=== PATIENT | male | born 1975 | race Caucasian/White ===

== ENCOUNTER 2019-03-26 01:28 | Outpatient (CLI) | payer BC, SELFPAY ==
--- NOTE | 2019-03-26 08:12 | DI.RAD_ITS ---
SYMPTOM/DIAGNOSIS: ABDOMINAL PJAIN, CYSTIC FIBROSIS R10.9 UNSPECIFIED ABDOMINAL PAIN ABDOMEN: 03/26 Two views were obtained. There is a large quantity of fecal material throughout the colon consistent with constipation. No evidence of bowel obstruction. Vascular clips noted in right upper quadrant consistent with prior cholecystectomy. No free intraperitoneal air is seen. No organomegaly seen. CONCLUSION: Findings consistent with constipation.
--- NOTE | 2019-03-26 08:12 | DI.US_ITS ---
SYMPTOM/DIAGNOSIS: ABDOMINAL PAIN, R10.9, UNSPECIFIED ABDOMINAL PAIN. ABDOMINAL ULTRASOUND: 03/26 The visualized liver parenchyma is normal in appearance. Gallbladder has been surgically removed. Common duct is dilated at about 12 mm, although this is within the accepted range for post cholecystectomy, there is a question of tapering of the common duct in the incompletely seen head of the pancreas. The possibility of extrinsic obstruction or intrinsic obstruction not excluded. Correlation with MRCP/Pancreatic MRI may be considered if clinically appropriate. Note is also made of right hydronephrosis which is moderate to severe. No localized site of obstruction identified and most of the ureter is nonvisualized. No left hydronephrosis or renal calcification. CONCLUSION: 1. Right hydronephrosis, moderate to severe, etiology uncertain. 2. Question common duct dilatation of the biliary tract, question extrinsic or intrinsic obstruction of the CBD at the pancreatic head. Correlation with MRCP/pancreatic MRI may be considered if clinically appropriate.
[2019-03-26 16:40] LABS: Abs Immature Grans 0.01 k/cumm (0.0-0.09); Absolute Basophil Count 0.03 k/cumm (0.0-0.2); Absolute Eosinophil Count 0.09 k/cumm (0.0-0.7); Absolute Lymphocyte Count 1.24 k/cumm (1.2-3.4); Absolute Neutrophil Count 6.67 k/cumm (1.2-6.7); Basophils % 0.4; Eosinophils % 1.1; HCT 41.1 % (40.0-50.0); HGB 13.8 g/dL (13.5-17.5); Immature Grans % 0.1; Lymphocytes % 14.5; Mean Corp. HGB Concentration 33.6 g/dL (32.0-36.0); Mean Corpuscular Hemoglobin 29.1 pg (27.0-33.0); Mean Corpuscular Volume 86.7 fL (80-95); Mean Platelet Volume 10.1 fL (8.0-11.0); Monocytes % 5.9; Platelet Count 382 x1000/uL (130-400); RBC 4.74 m/cumm (4.50-6.00); RBC Distribution Width 12.8 % (11.8-14.1); White Blood Cell Count 8.54 k/cumm (4.4-10.8)
[2019-03-26 19:26] LABS: ALT 106 U/L (12-78); AST 69 U/L (15-37); Albumin 3.2 g/dL (3.4-5.0); Alkaline Phosphatase 122 U/L (46-116); Anion Gap 9.1 mmol/L (3-11); BUN 14 mg/dL (7-18); Bilirubin, Total 0.3 mg/dL (0.2-1.0); CO2 28.9 mmol/L (21.0-32.0); CREATININE 1.09 mg/dL (0.70-1.30); Calcium 8.5 mg/dL (8.5-10.1); Chloride 101 mmol/L (98-107); Glucose 117 mg/dL (70-100); Lipase 19 U/L (73-393); Potassium 4.2 mmol/L (3.5-5.1); Sodium 139 mmol/L (136-145); Total Protein 7.2 g/dL (6.4-8.2)
[2019-03-26 19:55] LABS: Amylase 6 U/L (25-115)
== END 2019-03-26 01:48 ==
PROVIDERS: PCP Family Medicine; Visit Provider Family Medicine
DX: R10.9 Unspecified abdominal pain (principal); K59.00 Constipation, unspecified; N13.30 Unspecified hydronephrosis; K83.8 Other specified diseases of biliary tract; Z90.49 Acquired absence of other specified parts of digestive tract
CPT/HCPCS: 36415; 80053; 83690; 74018; 76700; 82150; 85025

== ENCOUNTER 2019-05-11 16:13 | Outpatient (REF) | payer BC, SELFPAY | END 2019-05-11 16:33 | LOC: LBN 16:13 | PROVIDERS: PCP Family Medicine; Visit Provider Family Medicine | DX: E43 Unspecified severe protein-calorie malnutrition (principal); K86.81 Exocrine pancreatic insufficiency | CPT/HCPCS: 80053; 83735; 84100; 84134; 84478; 85025 ==

== ENCOUNTER 2019-05-12 15:23 | Outpatient (REF) | payer BC, SELFPAY ==
[2019-05-12 16:38] LABS: Abs Immature Grans 0.02 k/cumm (0.0-0.09); Absolute Basophil Count 0.03 k/cumm (0.0-0.2); Absolute Eosinophil Count 0.03 k/cumm (0.0-0.7); Absolute Lymphocyte Count 1.12 k/cumm (1.2-3.4); Absolute Monocyte Count 0.51 k/cumm (0.11-0.7); Basophils % 0.3; Eosinophils % 0.3; HCT 36.2 % (40.0-50.0); Immature Grans % 0.2; Lymphocytes % 11.1; Mean Corp. HGB Concentration 33.1 g/dL (32.0-36.0); Mean Corpuscular Hemoglobin 28.3 pg (27.0-33.0); Mean Corpuscular Volume 85.4 fL (80-95); Mean Platelet Volume 11.6 fL (8.0-11.0); Neutrophils % 83.1; Platelet Count 421 x1000/uL (130-400); RBC 4.24 m/cumm (4.50-6.00); RBC Distribution Width 14.5 % (11.8-14.1); White Blood Cell Count 10.11 k/cumm (4.4-10.8)
[2019-05-12 16:47] LABS: ALT 269 U/L (12-78); AST 214 U/L (15-37); Albumin 2.7 g/dL (3.4-5.0); Alkaline Phosphatase 189 U/L (46-116); Anion Gap 11.5 mmol/L (3-11); BUN 29 mg/dL (7-18); CO2 29.5 mmol/L (21.0-32.0); CREATININE 0.89 mg/dL (0.70-1.30); Calcium 8.8 mg/dL (8.5-10.1); Chloride 103 mmol/L (98-107); Glucose 85 mg/dL (70-100); Potassium 4.2 mmol/L (3.5-5.1); Sodium 144 mmol/L (136-145); Total Protein 7.5 g/dL (6.4-8.2); Triglyceride 45 mg/dL (30-150)
[2019-05-12 17:43] LABS: PHOSPHORUS 4.2 mg/dL (2.6-4.7)
[2019-05-14 09:11] LABS: Prealbumin 21 mg/dL (20-40)
== END 2019-05-12 15:43 ==
LOC: LBN 15:23
PROVIDERS: PCP Family Medicine; Visit Provider Internal Medicine Pulmonary Disease
DX: K31.5 Obstruction of duodenum (principal); C17.0 Malignant neoplasm of duodenum; E43 Unspecified severe protein-calorie malnutrition
CPT/HCPCS: 80053; 84100; 84134; 84478; 85025

== ENCOUNTER 2019-05-18 12:19 | Outpatient (REF) | payer BC, SELFPAY ==
[2019-05-18 13:21] LABS: Abs Immature Grans 0.02 k/cumm (0.0-0.09); Absolute Basophil Count 0.03 k/cumm (0.0-0.2); Absolute Lymphocyte Count 0.97 k/cumm (1.2-3.4); Absolute Monocyte Count 0.73 k/cumm (0.11-0.7); Absolute Neutrophil Count 7.18 k/cumm (1.2-6.7); Basophils % 0.3; Eosinophils % 2.2; HCT 33.2 % (40.0-50.0); Immature Grans % 0.2; Lymphocytes % 10.6; Mean Corp. HGB Concentration 33.1 g/dL (32.0-36.0); Mean Corpuscular Hemoglobin 28.8 pg (27.0-33.0); Mean Corpuscular Volume 86.9 fL (80-95); Mean Platelet Volume 12.9 fL (8.0-11.0); Neutrophils % 78.7; Platelet Count 382 x1000/uL (130-400); RBC 3.82 m/cumm (4.50-6.00); RBC Distribution Width 15.3 % (11.8-14.1); White Blood Cell Count 9.13 k/cumm (4.4-10.8)
[2019-05-18 13:50] LABS: ALT 168 U/L (12-78); AST 64 U/L (15-37); Albumin 2.4 g/dL (3.4-5.0); Alkaline Phosphatase 315 U/L (46-116); Anion Gap 9.7 mmol/L (3-11); BUN 24 mg/dL (7-18); Bilirubin, Total 3.7 mg/dL (0.2-1.0); CO2 29.3 mmol/L (21.0-32.0); CREATININE 0.72 mg/dL (0.70-1.30); Calcium 8.3 mg/dL (8.5-10.1); Chloride 102 mmol/L (98-107); Glucose 108 mg/dL (70-100); Sodium 141 mmol/L (136-145); Triglyceride 38 mg/dL (30-150)
[2019-05-19 12:57] LABS: Prealbumin 10 mg/dL (20-40)
[2019-05-19 13:08] LABS: Magnesium 1.9 mg/dL (1.8-2.4)
== END 2019-05-18 12:39 ==
LOC: LBN 12:19
PROVIDERS: PCP Family Medicine; Visit Provider Family Medicine
DX: C17.0 Malignant neoplasm of duodenum (principal); E43 Unspecified severe protein-calorie malnutrition
CPT/HCPCS: 80053; 83735; 84100; 84134; 84478; 85025

== ENCOUNTER 2019-05-28 14:51 | Outpatient (RCR) | payer BC, SELFPAY ==
[2019-05-24] MEDS: Normal Saline Flush 10 ML SYR IVP (12:12)
[2019-05-24] MEDS: Heparin 500 UNITS/5 ML SYRINGE IV (12:28)
[2019-05-24 12:32] LABS: Abs Immature Grans 0.03 k/cumm (0.0-0.09); Absolute Basophil Count 0.03 k/cumm (0.0-0.2); Absolute Eosinophil Count 0.12 k/cumm (0.0-0.7); Absolute Lymphocyte Count 1.14 k/cumm (1.2-3.4); Absolute Monocyte Count 0.92 k/cumm (0.11-0.7); Basophils % 0.3; Eosinophils % 1.1; HCT 31.1 % (40.0-50.0); HGB 10.4 g/dL (13.5-17.5); Immature Grans % 0.3; Lymphocytes % 10.3; Mean Corp. HGB Concentration 33.4 g/dL (32.0-36.0); Mean Corpuscular Hemoglobin 28.3 pg (27.0-33.0); Mean Corpuscular Volume 84.7 fL (80-95); Mean Platelet Volume 11.9 fL (8.0-11.0); Monocytes % 8.3; Neutrophils % 79.7; Platelet Count 408 x1000/uL (130-400); RBC 3.67 m/cumm (4.50-6.00); RBC Distribution Width 14.9 % (11.8-14.1); White Blood Cell Count 11.04 k/cumm (4.4-10.8)
[2019-05-24 12:54] LABS: ALT 87 U/L (16-63); AST 43 U/L (15-37); Albumin 2.1 g/dL (3.4-5.0); Alkaline Phosphatase 363 U/L (46-116); BUN 19 mg/dL (7-18); CREATININE 0.83 mg/dL (0.70-1.30); Calcium 8.3 mg/dL (8.5-10.1); Chloride 101 mmol/L (98-107); Glucose 109 mg/dL (70-100); Potassium 3.7 mmol/L (3.5-5.1); Sodium 139 mmol/L (136-145); Total Protein 7.2 g/dL (6.4-8.2)
[2019-05-25 11:07] LABS: CEA 9.9 ng/ml
[2019-05-28] MEDS: Normal Saline Flush 10 ML SYR IVP (14:50)
[2019-05-28 15:03] LABS: Abs Immature Grans 0.02 k/cumm (0.0-0.09); Absolute Basophil Count 0.01 k/cumm (0.0-0.2); Absolute Eosinophil Count 0.11 k/cumm (0.0-0.7); Absolute Lymphocyte Count 1.05 k/cumm (1.2-3.4); Absolute Monocyte Count 0.61 k/cumm (0.11-0.7); Absolute Neutrophil Count 6.82 k/cumm (1.2-6.7); Basophils % 0.1; Eosinophils % 1.3; HCT 32.5 % (40.0-50.0); HGB 10.8 g/dL (13.5-17.5); Immature Grans % 0.2; Lymphocytes % 12.2; Mean Corp. HGB Concentration 33.2 g/dL (32.0-36.0); Mean Corpuscular Hemoglobin 28.2 pg (27.0-33.0); Mean Corpuscular Volume 84.9 fL (80-95); Mean Platelet Volume 11.5 fL (8.0-11.0); Monocytes % 7.1; Neutrophils % 79.1; Platelet Count 471 x1000/uL (130-400); RBC 3.83 m/cumm (4.50-6.00); RBC Distribution Width 14.8 % (11.8-14.1); White Blood Cell Count 8.62 k/cumm (4.4-10.8)
[2019-05-28 15:24] LABS: ALT 74 U/L (16-63); AST 50 U/L (15-37); Albumin 2.2 g/dL (3.4-5.0); Alkaline Phosphatase 360 U/L (46-116); Anion Gap 8.9 mmol/L (3-11); BUN 17 mg/dL (7-18); Bilirubin, Total 4.2 mg/dL (0.2-1.0); CO2 31.1 mmol/L (21.0-32.0); CREATININE 0.79 mg/dL (0.70-1.30); Calcium 8.6 mg/dL (8.5-10.1); Chloride 102 mmol/L (98-107); Glucose 104 mg/dL (70-100); Potassium 3.5 mmol/L (3.5-5.1); Sodium 142 mmol/L (136-145); Total Protein 7.8 g/dL (6.4-8.2)
[2019-05-31 10:56] LABS: CEA 10.1 ng/ml
== END 2019-05-29 23:59 | disposition home or self-care (01) ==
LOC: INF 14:51
PROVIDERS: PCP Family Medicine; Visit Provider Internal Medicine Hematology & Oncology
DX: C17.0 Malignant neoplasm of duodenum (principal); Z45.2 Encounter for adjustment and management of vascular access device
CPT/HCPCS: 36591; 36592; 80053; 82378; 85025

== ENCOUNTER 2019-05-28 14:58 | Outpatient (RCR) | payer BC, SELFPAY | END 2019-05-29 23:59 | disposition home or self-care (01) | LOC: INF 14:58 | PROVIDERS: PCP Family Medicine; Visit Provider Internal Medicine Hematology & Oncology | DX: R69 Illness, unspecified (principal) ==

== ENCOUNTER 2019-06-01 15:29 | Outpatient (REF) | payer BC, SELFPAY ==
[2019-06-01 16:16] LABS: Abs Immature Grans 0.02 k/cumm (0.0-0.09); Absolute Basophil Count 0.01 k/cumm (0.0-0.2); Absolute Eosinophil Count 0.17 k/cumm (0.0-0.7); Absolute Lymphocyte Count 1.17 k/cumm (1.2-3.4); Absolute Monocyte Count 0.81 k/cumm (0.11-0.7); Absolute Neutrophil Count 8.27 k/cumm (1.2-6.7); Basophils % 0.1; Eosinophils % 1.6; HCT 30.9 % (40.0-50.0); HGB 10.1 g/dL (13.5-17.5); Immature Grans % 0.2; Lymphocytes % 11.2; Mean Corp. HGB Concentration 32.7 g/dL (32.0-36.0); Mean Corpuscular Hemoglobin 28.4 pg (27.0-33.0); Mean Corpuscular Volume 86.8 fL (80-95); Mean Platelet Volume 12.6 fL (8.0-11.0); Monocytes % 7.8; Neutrophils % 79.1; Platelet Count 516 x1000/uL (130-400); RBC 3.56 m/cumm (4.50-6.00); RBC Distribution Width 15.1 % (11.8-14.1); White Blood Cell Count 10.45 k/cumm (4.4-10.8)
[2019-06-01 16:24] LABS: ALT 61 U/L (16-63); AST 45 U/L (15-37); Alkaline Phosphatase 276 U/L (46-116); Anion Gap 9.2 mmol/L (3-11); BUN 21 mg/dL (7-18); Bilirubin, Total 3.6 mg/dL (0.2-1.0); CO2 27.8 mmol/L (21.0-32.0); CREATININE 0.73 mg/dL (0.70-1.30); Calcium 8.1 mg/dL (8.5-10.1); Chloride 100 mmol/L (98-107); Glucose 102 mg/dL (70-100); Potassium 4.5 mmol/L (3.5-5.1); Sodium 137 mmol/L (136-145); Total Protein 6.8 g/dL (6.4-8.2); Triglyceride 49 mg/dL (30-150)
[2019-06-01 16:35] LABS: PHOSPHORUS 4.2 mg/dL (2.6-4.7)
[2019-06-02 13:27] LABS: Magnesium 1.8 mg/dL (1.8-2.4)
[2019-06-03 10:04] LABS: Prealbumin 9 mg/dL (20-40)
== END 2019-06-01 15:49 ==
LOC: LBN 15:29
PROVIDERS: Nurse Practitioner Acute Care; PCP Family Medicine; Visit Provider Family Medicine
DX: K31.5 Obstruction of duodenum (principal); C17.0 Malignant neoplasm of duodenum; E43 Unspecified severe protein-calorie malnutrition; R63.4 Abnormal weight loss
CPT/HCPCS: 80053; 83735; 84100; 84134; 84478; 85025

== ENCOUNTER 2019-06-08 15:09 | Outpatient (REF) | payer BC, SELFPAY ==
[2019-06-08 15:45] LABS: Abs Immature Grans 0.01 k/cumm (0.0-0.09); Absolute Basophil Count 0.01 k/cumm (0.0-0.2); Absolute Eosinophil Count 0.04 k/cumm (0.0-0.7); Absolute Lymphocyte Count 1.25 k/cumm (1.2-3.4); Absolute Monocyte Count 0.47 k/cumm (0.11-0.7); Basophils % 0.1; Eosinophils % 0.5; HCT 30.4 % (40.0-50.0); HGB 9.9 g/dL (13.5-17.5); Immature Grans % 0.1; Lymphocytes % 14.2; Mean Corp. HGB Concentration 32.6 g/dL (32.0-36.0); Mean Corpuscular Hemoglobin 28.1 pg (27.0-33.0); Mean Corpuscular Volume 86.4 fL (80-95); Mean Platelet Volume 12.4 fL (8.0-11.0); Monocytes % 5.4; Neutrophils % 79.7; Platelet Count 529 x1000/uL (130-400); RBC 3.52 m/cumm (4.50-6.00); RBC Distribution Width 14.6 % (11.8-14.1); White Blood Cell Count 8.78 k/cumm (4.4-10.8)
[2019-06-08 17:49] LABS: ALT 81 U/L (16-63); AST 55 U/L (15-37); Alkaline Phosphatase 323 U/L (46-116); Anion Gap 7.7 mmol/L (3-11); BUN 25 mg/dL (7-18); Bilirubin, Total 3.1 mg/dL (0.2-1.0); CO2 28.3 mmol/L (21.0-32.0); CREATININE 0.78 mg/dL (0.70-1.30); Calcium 8.3 mg/dL (8.5-10.1); Chloride 101 mmol/L (98-107); Glucose 94 mg/dL (70-100); Magnesium 1.7 mg/dL (1.8-2.4); Potassium 4.7 mmol/L (3.5-5.1); Sodium 137 mmol/L (136-145); Total Protein 7.1 g/dL (6.4-8.2); Triglyceride 40 mg/dL (30-150)
[2019-06-08 18:24] LABS: PHOSPHORUS 4.5 mg/dL (2.6-4.7)
== END 2019-06-08 15:29 ==
LOC: LBN 15:09
PROVIDERS: PCP Family Medicine; Visit Provider Family Medicine
DX: K31.5 Obstruction of duodenum (principal); C17.0 Malignant neoplasm of duodenum; E84.8 Cystic fibrosis with other manifestations; E11.9 Type 2 diabetes mellitus without complications
CPT/HCPCS: 80053; 83735; 84100; 84255; 84478; 85025

== ENCOUNTER 2019-06-16 16:39 | Outpatient (REF) | payer BC, SELFPAY ==
[2019-06-16 23:29] LABS: ALT 74 U/L (16-63); AST 56 U/L (15-37); Abs Immature Grans 0.02 k/cumm (0.0-0.09); Absolute Basophil Count 0.01 k/cumm (0.0-0.2); Absolute Eosinophil Count 0.18 k/cumm (0.0-0.7); Absolute Lymphocyte Count 1.09 k/cumm (1.2-3.4); Absolute Monocyte Count 0.84 k/cumm (0.11-0.7); Absolute Neutrophil Count 5.37 k/cumm (1.2-6.7); Alkaline Phosphatase 286 U/L (46-116); BUN 22 mg/dL (7-18); Basophils % 0.1; Bilirubin, Total 3.2 mg/dL (0.2-1.0); CREATININE 0.71 mg/dL (0.70-1.30); Calcium 8.4 mg/dL (8.5-10.1); Chloride 101 mmol/L (98-107); Eosinophils % 2.4; Glucose 89 mg/dL (70-100); HCT 30.5 % (40.0-50.0); HGB 9.7 g/dL (13.5-17.5); Immature Grans % 0.3; Lymphocytes % 14.5; Magnesium 1.8 mg/dL (1.8-2.4); Mean Corp. HGB Concentration 31.8 g/dL (32.0-36.0); Mean Corpuscular Hemoglobin 28.3 pg (27.0-33.0); Mean Corpuscular Volume 88.9 fL (80-95); Mean Platelet Volume 12.1 fL (8.0-11.0); Monocytes % 11.2; Neutrophils % 71.5; Platelet Count 441 x1000/uL (130-400); Potassium 4.6 mmol/L (3.5-5.1); RBC 3.43 m/cumm (4.50-6.00); RBC Distribution Width 15.6 % (11.8-14.1); Sodium 139 mmol/L (136-145); Triglyceride 33 mg/dL (30-150); White Blood Cell Count 7.51 k/cumm (4.4-10.8)
[2019-06-16 23:41] LABS: Anisocytosis 1+; Hypochromasia 1+; PHOSPHORUS 4.2 mg/dL (2.6-4.7); Polychromasia Present
[2019-06-17 22:04] LABS: Selenium, Serum 77 ng/mL (70-150)
== END 2019-06-16 16:59 ==
LOC: LBN 16:39
PROVIDERS: PCP Family Medicine; Visit Provider Family Medicine
DX: K31.5 Obstruction of duodenum (principal); C17.0 Malignant neoplasm of duodenum; E43 Unspecified severe protein-calorie malnutrition; K86.81 Exocrine pancreatic insufficiency
CPT/HCPCS: 80053; 83735; 84100; 84134; 84255; 84478; 85025

== ENCOUNTER 2019-06-23 13:50 | Outpatient (RCR) | payer BC, SELFPAY ==
[2019-06-02] MEDS: Normal Saline Flush 10 ML SYR IVP (07:35)
[2019-06-02 07:40] LABS: Abs Immature Grans 0.02 k/cumm (0.0-0.09); Absolute Basophil Count 0.01 k/cumm (0.0-0.2); Absolute Lymphocyte Count 1.47 k/cumm (1.2-3.4); Absolute Monocyte Count 0.89 k/cumm (0.11-0.7); Basophils % 0.1; Eosinophils % 0.8; HCT 31.5 % (40.0-50.0); HGB 10.5 g/dL (13.5-17.5); Immature Grans % 0.2; Lymphocytes % 12.3; Mean Corp. HGB Concentration 33.3 g/dL (32.0-36.0); Mean Corpuscular Hemoglobin 28.5 pg (27.0-33.0); Mean Corpuscular Volume 85.6 fL (80-95); Mean Platelet Volume 11.3 fL (8.0-11.0); Monocytes % 7.4; Neutrophils % 79.2; Platelet Count 558 x1000/uL (130-400); RBC 3.68 m/cumm (4.50-6.00); RBC Distribution Width 14.9 % (11.8-14.1); White Blood Cell Count 11.96 k/cumm (4.4-10.8)
[2019-06-02 07:41] LABS: Absolute Neutrophil Count 9.47 k/cumm (1.2-6.7)
[2019-06-02 07:54] LABS: ALT 60 U/L (16-63); AST 44 U/L (15-37); Albumin 2.1 g/dL (3.4-5.0); Alkaline Phosphatase 284 U/L (46-116); Anion Gap 6.3 mmol/L (3-11); BUN 18 mg/dL (7-18); Bilirubin, Total 4.1 mg/dL (0.2-1.0); CO2 30.7 mmol/L (21.0-32.0); CREATININE 0.79 mg/dL (0.70-1.30); Calcium 8.3 mg/dL (8.5-10.1); Chloride 99 mmol/L (98-107); Glucose 134 mg/dL (70-100); Potassium 3.9 mmol/L (3.5-5.1); Sodium 136 mmol/L (136-145); Total Protein 7.7 g/dL (6.4-8.2)
[2019-06-15] MEDS: Normal Saline Flush 10 ML SYR IVP (11:25)
[2019-06-15 11:29] LABS: Abs Immature Grans 0.02 k/cumm (0.0-0.09); Absolute Basophil Count 0.02 k/cumm (0.0-0.2); Absolute Eosinophil Count 0.11 k/cumm (0.0-0.7); Absolute Lymphocyte Count 1.28 k/cumm (1.2-3.4); Absolute Monocyte Count 0.96 k/cumm (0.11-0.7); Absolute Neutrophil Count 6.73 k/cumm (1.2-6.7); Basophils % 0.2; Eosinophils % 1.2; HCT 30.5 % (40.0-50.0); HGB 10.1 g/dL (13.5-17.5); Immature Grans % 0.2; Mean Corp. HGB Concentration 33.1 g/dL (32.0-36.0); Mean Corpuscular Hemoglobin 28.6 pg (27.0-33.0); Mean Corpuscular Volume 86.4 fL (80-95); Mean Platelet Volume 11.1 fL (8.0-11.0); Monocytes % 10.5; Neutrophils % 73.9; Platelet Count 502 x1000/uL (130-400); RBC 3.53 m/cumm (4.50-6.00); RBC Distribution Width 14.9 % (11.8-14.1); White Blood Cell Count 9.12 k/cumm (4.4-10.8)
[2019-06-15 11:39] LABS: ALT 67 U/L (16-63); AST 50 U/L (15-37); Alkaline Phosphatase 295 U/L (46-116); Anion Gap 7.4 mmol/L (3-11); BUN 23 mg/dL (7-18); Bilirubin, Total 3.4 mg/dL (0.2-1.0); CO2 29.6 mmol/L (21.0-32.0); CREATININE 0.72 mg/dL (0.70-1.30); Calcium 8.3 mg/dL (8.5-10.1); Chloride 100 mmol/L (98-107); Glucose 129 mg/dL (70-100); Sodium 137 mmol/L (136-145); Total Protein 7.7 g/dL (6.4-8.2)
[2019-06-16 09:32] LABS: CEA 17.2 ng/ml
[2019-06-16 09:39] LABS: Magnesium 1.8 mg/dL (1.8-2.4); Triglyceride 43 mg/dL (30-150)
[2019-06-16 09:51] LABS: PHOSPHORUS 4.5 mg/dL (2.6-4.7)
[2019-06-17 09:52] LABS: Prealbumin 9 mg/dL (20-40)
[2019-06-23] MEDS: Normal Saline Flush 10 ML SYR IVP (14:31)
[2019-06-23 14:34] LABS: Abs Immature Grans 0.03 k/cumm (0.0-0.09); Absolute Basophil Count 0.02 k/cumm (0.0-0.2); Absolute Eosinophil Count 0.04 k/cumm (0.0-0.7); Absolute Lymphocyte Count 1.45 k/cumm (1.2-3.4); Absolute Neutrophil Count 8.56 k/cumm (1.2-6.7); Basophils % 0.2; Eosinophils % 0.4; HGB 10.6 g/dL (13.5-17.5); Immature Grans % 0.3; Lymphocytes % 13.4; Mean Corp. HGB Concentration 33.1 g/dL (32.0-36.0); Mean Corpuscular Hemoglobin 28.4 pg (27.0-33.0); Mean Corpuscular Volume 85.8 fL (80-95); Monocytes % 6.5; Neutrophils % 79.2; Platelet Count 471 x1000/uL (130-400); RBC 3.73 m/cumm (4.50-6.00)
[2019-06-23 14:41] LABS: ALT 65 U/L (16-63); AST 46 U/L (15-37); Albumin 1.8 g/dL (3.4-5.0); Alkaline Phosphatase 271 U/L (46-116); Anion Gap 7.5 mmol/L (3-11); BUN 20 mg/dL (7-18); Bilirubin, Total 2.6 mg/dL (0.2-1.0); CO2 31.5 mmol/L (21.0-32.0); CREATININE 0.73 mg/dL (0.70-1.30); Calcium 8.4 mg/dL (8.5-10.1); Chloride 99 mmol/L (98-107); Glucose 102 mg/dL (70-100); Magnesium 1.8 mg/dL (1.8-2.4); Potassium 4.1 mmol/L (3.5-5.1); Sodium 138 mmol/L (136-145); Total Protein 7.7 g/dL (6.4-8.2); Triglyceride 49 mg/dL (30-150)
[2019-06-23 14:51] LABS: PHOSPHORUS 4.3 mg/dL (2.6-4.7)
[2019-06-24 10:35] LABS: Prealbumin 9 mg/dL (20-40)
[2019-06-24 18:12] LABS: Selenium, Serum 70 ng/mL (70-150)
== END 2019-06-28 23:59 | disposition home or self-care (01) ==
LOC: INF 13:50
PROVIDERS: PCP Family Medicine; Visit Provider Internal Medicine Hematology & Oncology
DX: K31.5 Obstruction of duodenum (principal); C17.0 Malignant neoplasm of duodenum; E43 Unspecified severe protein-calorie malnutrition; K86.81 Exocrine pancreatic insufficiency
CPT/HCPCS: 36591; 36592; 80053; 82378; 83735; 84100; 84134; 84255; 84478; 85025

== ENCOUNTER 2019-06-28 15:30 | Outpatient (REF) | payer BC, SELFPAY ==
[2019-06-28 14:58] LABS: Abs Immature Grans 0.02 k/cumm (0.0-0.09); HCT 30.2 % (40.0-50.0); HGB 9.8 g/dL (13.5-17.5); Mean Corp. HGB Concentration 32.5 g/dL (32.0-36.0); Mean Corpuscular Hemoglobin 28.2 pg (27.0-33.0); Mean Corpuscular Volume 86.8 fL (80-95); Mean Platelet Volume 11.6 fL (8.0-11.0); Platelet Count 482 x1000/uL (130-400); RBC 3.48 m/cumm (4.50-6.00); RBC Distribution Width 15.2 % (11.8-14.1); White Blood Cell Count 6.57 k/cumm (4.4-10.8)
[2019-06-28 15:21] LABS: ALT 63 U/L (16-63); AST 58 U/L (15-37); Albumin 1.8 g/dL (3.4-5.0); Alkaline Phosphatase 302 U/L (46-116); Anion Gap 6.6 mmol/L (3-11); BUN 17 mg/dL (7-18); Bilirubin, Total 2.3 mg/dL (0.2-1.0); CO2 31.4 mmol/L (21.0-32.0); CREATININE 0.61 mg/dL (0.70-1.30); Calcium 8.2 mg/dL (8.5-10.1); Chloride 101 mmol/L (98-107); Glucose 100 mg/dL (70-100); PHOSPHORUS 4.7 mg/dL (2.6-4.7); Potassium 4.7 mmol/L (3.5-5.1); Sodium 139 mmol/L (136-145)
[2019-06-28 15:34] LABS: Absolute Lymphocyte Count 1.31 k/cumm (1.2-3.4); Absolute Monocyte Count 1.18 k/cumm (0.11-0.7); Absolute Neutrophil Count 4.07 k/cumm (1.2-6.7); Atypical Lymphocytes % 3; Triglyceride 43 mg/dL (30-150)
[2019-06-28 15:35] LABS: Diff Comment Manual Differential; Hypochromasia 1+; Poikilocytes 1+; Polychromasia Present
[2019-06-29 09:52] LABS: Prealbumin 8 mg/dL (20-40)
[2019-06-29 18:46] LABS: Selenium, Serum 65 ng/mL (70-150)
== END 2019-06-28 15:50 ==
LOC: LBN 15:30
PROVIDERS: PCP Family Medicine; Visit Provider Family Medicine
DX: C17.0 Malignant neoplasm of duodenum (principal); E43 Unspecified severe protein-calorie malnutrition; R63.4 Abnormal weight loss; K86.81 Exocrine pancreatic insufficiency
CPT/HCPCS: 80053; 83735; 84100; 84134; 84255; 84478; 85025

== ENCOUNTER 2019-07-06 12:02 | Outpatient (CLI) | payer BC, SELFPAY ==
--- NOTE | 2019-07-06 13:15 | DI.RAD_ITS ---
EXAM: XR CHEST 2V PA LATERAL INDICATION: hypoxia, R09.02. COMPARISON: CHEST 2 VIEWS PA,LAT from 06/23/2011 CHEST FOR PULMONARY EMBOLUS from 08/17/2017 TECHNIQUE: 2D digital imaging was performed. FINDINGS: A port is noted over the right chest. The heart size is normal. Is wall thickening seen greatest a t the lung bases. There are increased densities at both lung bases greater on the right, suspicious for pneumonia. No effusions are seen. IMPRESSION: Underlying bronchiectasis. Bilateral lower lobe infiltrates.
== END 2019-07-06 12:22 ==
PROVIDERS: PCP Family Medicine; Visit Provider Family Medicine
DX: R09.02 Hypoxemia (principal); J47.9 Bronchiectasis, uncomplicated; R91.8 Other nonspecific abnormal finding of lung field
CPT/HCPCS: 71046

== ENCOUNTER 2019-07-09 01:15 | Outpatient (RCR) | payer BC, SELFPAY ==
[2019-06-29] MEDS: Normal Saline Flush 10 ML SYR 30 ML IVP (11:00)
[2019-06-29 11:33] LABS: Triglyceride 47 mg/dL (30-150)
[2019-06-30 16:38] LABS: CEA 19.8 ng/ml
[2019-07-06 14:39] LABS: Abs Immature Grans 0.07 k/cumm (0.0-0.09); HCT 30.9 % (40.0-50.0); HGB 10.1 g/dL (13.5-17.5); Mean Corp. HGB Concentration 32.7 g/dL (32.0-36.0); Mean Corpuscular Hemoglobin 27.6 pg (27.0-33.0); Mean Corpuscular Volume 84.4 fL (80-95); Mean Platelet Volume 11.6 fL (8.0-11.0); RBC 3.66 m/cumm (4.50-6.00); RBC Distribution Width 15.1 % (11.8-14.1); White Blood Cell Count 9.74 k/cumm (4.4-10.8)
[2019-07-06] MEDS: Normal Saline Flush 10 ML SYR IVP (14:39)
[2019-07-06 15:02] LABS: Absolute Lymphocyte Count 1.66 k/cumm (1.2-3.4); Absolute Neutrophil Count 7.69 k/cumm (1.2-6.7); Atypical Lymphocytes % 4; Platelet Count 160 x1000/uL (130-400)
[2019-07-06 15:03] LABS: Absolute Monocyte Count 0.29 k/cumm (0.11-0.7)
[2019-07-06 15:05] LABS: Diff Comment Manual Differential; Hypochromasia 1+; Poikilocytes 1+
[2019-07-06 15:07] LABS: ALT 79 U/L (16-63); AST 86 U/L (15-37); Albumin 1.4 g/dL (3.4-5.0); Alkaline Phosphatase 192 U/L (46-116); Anion Gap 6.3 mmol/L (3-11); BUN 32 mg/dL (7-18); Bilirubin, Total 2.5 mg/dL (0.2-1.0); CO2 33.7 mmol/L (21.0-32.0); CREATININE 1.14 mg/dL (0.70-1.30); Calcium 8.8 mg/dL (8.5-10.1); Chloride 103 mmol/L (98-107); Glucose 122 mg/dL (70-100); Magnesium 2.3 mg/dL (1.8-2.4); PHOSPHORUS 2.3 mg/dL (2.6-4.7); Potassium 3.6 mmol/L (3.5-5.1); Sodium 143 mmol/L (136-145); Total Protein 7.1 g/dL (6.4-8.2)
[2019-07-06 15:23] LABS: Triglyceride 258 mg/dL (30-150)
[2019-07-07 11:38] LABS: Prealbumin 3 mg/dL (20-40)
== END 2019-07-09 23:59 | disposition home or self-care (01) ==
LOC: INF 01:15
PROVIDERS: PCP Family Medicine; Visit Provider Internal Medicine Hematology & Oncology
DX: C17.0 Malignant neoplasm of duodenum (principal); K31.5 Obstruction of duodenum; K86.81 Exocrine pancreatic insufficiency; E43 Unspecified severe protein-calorie malnutrition; Z45.2 Encounter for adjustment and management of vascular access device
CPT/HCPCS: 36592; 80053; 96523; 82378; 83735; 84100; 84134; 84478; 85025